=== PATIENT | female | born 1990 | race Caucasian/White ===

== ENCOUNTER → 2017-02-08 | Emergency (ER) | payer MEDICAID, OTHER ==
[~2017-02-08] MED LIST: PREN1PAK2 PO
--- NOTE | 2017-02-08 21:02 | PD ---
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 and since that time she strained something and she's been hurting since, no bleeding or leakage of amniotic fluid, she has not felt the baby move yet in this , she was worried because her last was a demise at 25 weeks Para: 3 : 5 Miscarriage: 1 History Obstetric History Obstetric History She has had 3 vaginal deliveries 1 spontaneous AB and her last vaginal delivery was a 25 week demise leaving her with 2 living children Social History Alcohol Use: No Tobacco Use: No Substance Abuse: No Allergies-Medications (Allergen,Severity, Reaction): Coded Allergies: No Known Allergies (Verified , 01/17/17) Home Meds Active Scripts W/O Vit A W/ Fe Carbo Pack (Citranatal Dha Pack)27-1 & 250 Mg Pack1 Ea PO DAILY #30 BLISTER Ref 11 30 day supply. Prov:Tabby Foreman MD R1 11/25/16 Review of Systems General / Constitutional: No: Fever, Weight Gain, Chills, Other Eyes: No: Diploplia, Blurred Vision, Visual changes, Pain, Photophobia HENT: No: Headaches, Vertigo, Lightheadedness Cardiovascular: No: Irregular Rhythm, Chest Pain or Discomfort, Palpitations, Tachycardia, Syncope, Varicosities, Edema, Cyanosis Respiratory: No: Cough, Short of Breath, Other Gastrointestinal: Abdominal Pain, No: Nausea, Vomiting, Diarrhea Genitourinary: No: Decreased Urinary Output, Oliguria Musculoskeletal: No: Limited ROM, Weakness, Cramping, Edema, Pain Skin: No Rash, No Itching, No Dryness, No Lumps, No Change in Pigmentation, No Change in Nails, No Alopecia, No Lesions Neurologic: No: Weakness, Dizziness, Syncope, Focal Abnormalities, Coordination Problem, Headache, Slurred Speech, Seizures Psychiatric: No: Depression, Suicidal Ideations, Homicidal Ideation Endocrine: No: Heat Intolerance, Cold Intolerance, Polydipsia, Polyuria, Other Physical Exam Narrative GENERAL: Well-nourished, well-developed patient. SKIN: Warm and dry. HEAD: Normocephalic and atraumatic. EYES: No scleral icterus. No injection or drainage. ENT: No nasal drainage noted. Mucous membranes pink. Airway patent. NECK: Supple, trachea midline. No JVD. CARDIOVASCULAR: Regular rate and rhythm without murmurs, gallops, or rubs. RESPIRATORY: Breath sounds equal bilaterally. No accessory muscle use. BREASTS: Bilateral exam showed no masses , no retractions, no nipple discharge. ABDOMEN/GI: Abdomen soft, non-tender, bowel sounds present, no rebound, no guarding Gravid to [16-] weeks size Fundal Height: [16-] GENITOURINARY: External Genitalia: intact and normal in appearance BUS glands: [-] Cervix: [-] Dilatation: [-Closed] Effacement: [-] Thick Station: Very posterior Membranes: [intact ] Uterine Contractions: [-none] FHT's:135 EXTREMITIES: No cyanosis or edema. BACK: Nontender without obvious deformity. No CVA tenderness. NEUROLOGICAL: Awake and alert. Motor and sensory grossly within normal limits. Five out of 5 muscle strength in all muscle groups. Normal speech. Data Data Orders Vital Signs (Adult) .ON ADMISSION (02/08/17 20:38) ^ Labor Status (02/08/17 20:38) Urinalysis - C+S If Indicated (02/08/17 20:38) Ob Poc Ultrasound (02/08/17 ) Labs Bedside ultrasound done tonight shows an active 15-16 week size fetus, normal cardiac motion and normal anatomy scan noted., Placenta is posterior and the amniotic fluid is adequate MDM Interpretation(s) This is a 26-year-old white female at 16 weeks gestation presents for evaluation due to pelvic pressure and pain. 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 Ultrasound to bedside shows an active 15-16 week size fetus with normal cardiac motion normal anatomy normal amniotic fluid volume Plan Plan for her to discharge patient home she can use Tylenol as needed for pain soak in a hot bath every is a heating pad and just stay off her feet for a day or so if she is uncomfortable Diagnosis Diagnosis: Primary Impression: Abdominal pain affecting , antepartum Additional Impression: Fall Disposition: 01 DISCHARGE HOME Condition: Stable Cullen Madrid II, MD Feb 08, 2017 21:02
== END | disposition home or self-care (01) ==
LOC: HOBED 19:21
DX: Z3A.16 16 weeks gestation of pregnancy (principal); O26.92 Pregnancy related conditions, unspecified, second trimester; R10.2 Pelvic and perineal pain
CPT/HCPCS: 76815